=== PATIENT | female | born 1975 | race African-American/Black ===

== ENCOUNTER 2020-07-04 17:57 | Emergency (ER) | payer MEDICAID, OTHER ==
[~2020-07-04] VITALS: Ht 165.1 cm; Wt 70.8 kg
[2020-07-04] MEDS ORDERED: IBUPROFEN 600 MG TAB PO ONE (18:15)
[2020-07-04 19:41] VITALS: BP 108/74
== END 2020-07-04 20:51 | disposition home or self-care (01) ==
LOC: ER 17:57
DX: S83.92XA Sprain of unspecified site of left knee, initial encounter (principal); S93.402A Sprain of unspecified ligament of left ankle, initial encounter; W22.8XXA Striking against or struck by other objects, initial encounter; Y93.89 Activity, other specified; Y92.89 Other specified places as the place of occurrence of the external cause; Y99.8 Other external cause status
CPT/HCPCS: 29505; 73562; 73610